=== PATIENT | male | born 1980 | race Caucasian/White ===

== ENCOUNTER 2024-04-01 18:02 | Emergency (ER) | payer BC, SELFPAY ==
[2024-04-01 18:40] VITALS: BP 119/75; PULSE 60; RESP 19; TEMP 36.6; O2SAT 98; BMI 29.0
--- NOTE | 2024-04-01 18:57 | XR_ITS ---
Examination: Fingers, left hand first digit 3 views Technique: AP, oblique, lateral views left hand first digit 3 views. Exam date and time: April 01, 2024 1917 hrs. Indications: Laceration to the first digit today pain Findings: Nondisplaced fracture ungual tuft tip No opaque foreign body No dislocation Impression: Nondisplaced fracture ungual tuft tip distal phalanx first digit
--- NOTE | 2024-04-01 18:57 | PD.EDRME ---
Rapid Medical Screening Exam RME Arrival date/time: 04/01/24 18:02 43-year-old male presents emergency department complaining of pressure injury to left thumb that occurred with heavy table. Chief Complaint: Hand/Wrist Problems Time Seen by Provider: 04/01/24 18:45 Vital signs: Vital Signs Temperature 97.9 F 04/01/24 18:40 Pulse Rate 60 04/01/24 18:40 Respiratory Rate 19 04/01/24 18:40 Blood Pressure 119/75 04/01/24 18:40 Pulse Oximetry (%) 98 04/01/24 18:40 Oxygen Delivery Method Room Air 04/01/24 18:40 Vital signs reviewed by provider: Yes
[2024-04-01] MEDS: HYDROcodone/APAP 5/325 TABLET 1 TAB PO ×2 (19:20→22:42)
[2024-04-01] MEDS: DIPHTH,PERTUSS(ACELL),TET VAC 0.5 ML VIAL IMi (19:20)
[2024-04-01] MEDS: LIDOCAINE HCL 1% 20 ML VIAL INFL (19:21)
--- NOTE | 2024-04-01 22:23 | EDNOTE_ITS ---
<Statement entered by Halina Sanz MD - 04/02/24 19:42> As co-signing physician, I was present and available for consult prn. I concur with the plan and care as documented by the midlevel provider. Upper Extremity Injury RME/HPI General Chief Complaint: Hand/Wrist Problems Stated Complaint: SMASHED LEFT THUMB WITH SEWING MACHINE Time Seen by Provider: 04/01/24 18:45 Source: patient Arrival date/time: 04/01/24 18:02 43-year-old male presents emergency department complaining of crush injury injury to left thumb that occurred with heavy table. Patient is unsure if he is up-to-date with tetanus vaccine. Mode of arrival: ambulatory Limitations: no limitations RME / HPI RME / HPI narrative: 04/01/24 18:02 43-year-old male presents emergency department complaining of pressure injury to left thumb that occurred with heavy table. Related Data Previous Rx's ?Medication ?Instructions ?Recorded azithromycin 250 mg tablet 250 mg PO QDAY #4 tabs 10/20/16 (Zithromax) diphenhydramine HCl 25 mg capsule 50 mg (2 x 25 mg) PO Q4H PRN 08/30/17 (Benadryl) allergic reaction #60 caps epinephrine 0.3 mg/0.3 mL See Rx Instructions .Route 08/30/17 injection, auto-injector (EpiPen .COMPLEX #2 ea 2-Cassius) famotidine 20 mg tablet (Pepcid) 20 mg PO BID #10 tabs 08/30/17 cephalexin 500 mg capsule 500 mg PO BID 7 days #14 caps 04/01/24 hydrocodone 5 mg-acetaminophen 325 1 tab PO BID PRN pain #10 tabs 04/01/24 mg tablet Allergies Allergy/AdvReac Type Severity Reaction Status Date / Time Penicillins Allergy Unknown RASH Verified 04/01/24 18:03 Bee Stings Allergy Unknown ANAPHYLAXIS Uncoded 04/01/24 18:03 Review of Systems Review of Systems Systems Reviewed: All systems reviewed, normal except as documented Constitutional Constitutional: Reports system reviewed and no additional complaints, except as documented, Denies body ache(s), Denies chills and Denies fever(s) Eyes Eyes: Reports system reviewed and no additional complaints, except as documented and Denies change in vision ENT Ears, Nose, Mouth, and Throat: Reports system reviewed and no additional complaints, except as documented, Denies disequilibrium, Denies dizziness, Denies sore throat and Denies vertigo Cardiovascular Cardiovascular: Reports system reviewed and no additional complaints, except as documented, Denies chest pain and Denies dyspnea Respiratory Respiratory: Reports system reviewed and no additional complaints, except as documented, Denies chest congestion, Denies cough and Denies dyspnea Gastrointestinal Gastrointestinal: Reports system reviewed and no additional complaints, except as documented, Denies abdominal pain, Denies nausea and Denies vomiting Musculoskeletal Musculoskeletal: Reports system reviewed and no additional complaints, except as documented, Denies abnormal gait and Denies arthralgias Integumentary/Breasts Skin/Breast: Reports system reviewed and no additional complaints, except as documented, Reports nail changes, Denies erythema, Denies rash, Reports skin swelling and Reports wounds Neurologic Neurologic: Reports system reviewed and no additional complaints, except as documented, Denies abnormal gait, Denies disequilibrium, Denies dizziness and Denies vertigo Past Medical History Past Medical History CARDIAC: Negative Congestive Heart Failure RESPIRATORY: Negative Chronic Obstructive Pulmonary Disease (COPD) GENITOURINARY: Negative Renal Disease ENDOCRINE: Negative Diabetes Mellitus Type 1 or Diabetes Mellitus Type 2 Social History SMOKING STATUS: Never smoker ED Exam General Limitations: Present no limitations General appearance: Present alert and in no apparent distress Head Head exam: Present atraumatic Eye Eye exam: Present normal appearance, PERRL and EOMI ENT ENT exam: Present normal exam, normal oropharynx and mucous membranes moist Neck Neck exam: Present normal inspection, full ROM and trachea midline Chest Chest inspection: Present normal inspection and symmetric chest wall rise Respiratory Respiratory exam: Present normal lung sounds bilaterally Cardiovascular Cardiovascular exam: Present regular rate, normal rhythm and normal heart sounds Abdominal Exam Abdominal exam: Present soft and normal bowel sounds Extremities Exam Extremities exam: Present normal inspection and full ROM Expanded Upper Extremity Exam Hand exam: Present swelling and laceration Hand L/R back image: 2 1. Laceration with bleeding and injury to nail partial avulsion. Vascular exam: Normal capillary refill Back Exam Back exam: Present normal inspection and full ROM Neurological Exam Neurological exam: Present alert, oriented X3 and CN II-XII intact Psychiatric Psychiatric exam: Present normal affect and normal mood Skin Skin exam: Present warm and dry Course Quality Measures none Orders Category Date Time Status Set Up Suture Tray STAT Care 04/01/24 18:58 Completed Splint / Immobilizer STAT Care 04/01/24 22:24 Completed Wound Care [Wound Care] NOW Care 04/01/24 18:58 Completed XR finger LT min 2V Stat Exams 04/01/24 18:57 Completed HYDROcodone*/APAP 5/325 [Imler 5/325] Med 04/01/24 18:57 Discontinued 1 tab PO X1 ONE HYDROcodone*/APAP 5/325 [Imler 5/325] Med 04/01/24 22:28 Discontinued 1 tab PO X1 ONE Lidocaine 1% 20 ml [Xylocaine 1% 20 ML] Med 04/01/24 18:58 Discontinued 20 ml INFL X1 ONE Tet,Diphth,Pertuss(Acell)-Tdap [Boostrix Vacc] Med 04/01/24 18:58 Discontinued 0.5 ml IMI .ONCE ONE Vital Signs Vital signs: Vital Signs Temperature 97.9 F 04/01/24 18:40 Pulse Rate 60 04/01/24 18:40 Respiratory Rate 19 04/01/24 18:40 Blood Pressure 119/75 04/01/24 18:40 Pulse Oximetry (%) 98 04/01/24 18:40 Oxygen Delivery Method Room Air 04/01/24 18:40 98% room air within normal limits Procedures -ED Laceration Laceration 1: Site: hand Side (If applicable): left Size (cm): 1 Description: flap Depth: simple, single layer Local Anesthetic: lidocaine 1% Amount of anesthesia used (mL): 1 Pre-repair: wound explored and irrigated extensively Skin layer closed with: other (Prolene) Size (cm): 4-0 Number of sutures: 4 Technique: simple, interrupted Extremity Injury MDM Narrative MDM Narrative:: 43-year-old male presents emergency department complaining of crush injury injury to left thumb that occurred with heavy table. Patient is unsure if he is up-to-date with tetanus vaccine. X-ray of thumb findings nondisplaced fracture ungual tuft tip distal phalanx first digit. Left thumb irrigated with copious amounts of normal saline. 1 mL of 1% lidocaine was used as local anesthetic for digital block. Using 4-0 Prolene 4 simple interrupted sutures into the nailbed was used to stabilize nail. Patient tolerated well. No tendon involvement. Dressing was applied and prefabricated finger splint was applied as well. Patient instructed to have sutures removed in 7 to 10 days and have primary care provider send referral to director of orthopedics for finger fracture. Patient discharged on prophylactic antibiotics and instructed to return to emergency department for any signs of infection or worsening symptoms. Patient data External records reviewed:: [facility] previous records Clinical information provided by:: patient Social determinants that could affect healthcare access:: none Patient has the following chronic illnesses:: None How is presenting disease/condition affected by chronic disease/condition?: no chronic disease Evaluation data The following diagnostics were reviewed and interpreted by me:: radiology exam(s) Lab and/or radiology exams considered but not ordered:: Ordered Interpretation Summary: Interpreted by me Medications / Prescriptions Medications or Prescriptions considered but not ordered:: Ordered Medication administrations:: Medication Administration History Discontinued Medications Hydrocodone Bitart/Acetaminophen (Hydrocodone/Apap 5/325 Tablet) 1 tab PO X1 ONE Stop: 04/01/24 18:58 Last Admin: 04/01/24 19:20 Dose: 1 tab Documented By: OA Hydrocodone Bitart/Acetaminophen (Hydrocodone/Apap 5/325 Tablet) 1 tab PO X1 ONE Stop: 04/01/24 22:29 Last Admin: 04/01/24 22:42 Dose: 1 tab Documented By: Diphtheria/Tetanus/Acell Pertussis (Diphth,Pertuss(Acell),Tet Vac 0.5 Ml Vial) 0.5 ml IMi .ONCE ONE Stop: 04/01/24 18:59 Last Admin: 04/01/24 19:20 Dose: 0.5 ml Documented By: DENISSE Lidocaine HCl (Lidocaine Hcl 1% 20 Ml Vial) 20 ml INFL X1 ONE Stop: 04/01/24 18:59 Last Admin: 04/01/24 19:21 Dose: 20 ml Documented By: OA Given Consultations Consultation(s) initiated? (list below): No Diagnosis Upper Extremity Injury Differential Diagnosis: finger sprain, dislocation of finger and fracture of hand Most likely diagnosis given after review of the tests above:: Laceration of left thumb with damage to nail Left thumb fracture Admission Indicated Admission indicated?: not indicated Admission Request Was there a request for admission?: No Disposition Plan Disposition Plan: Discharge Discharge Attestation Discharge Attestation: The patient and all family members were given an opportunity to ask questions and understood the discharge instructions. Discharge instructions specifically effects, indications for sooner follow up or return to the emergency department, and the expected course of current diagnosis. Patient condition: Stable Discharge Plan Plan Patient Disposition: HOME (Self Care) Disposition Comment: Stable Prescriptions/Referrals Prescriptions/Med Rec: New hydrocodone-acetaminophen 5-325 mg tablet 1 tab PO BID MDD 2 tabs PRN (Reason: pain) Qty: 10 0RF cephalexin 500 mg capsule 500 mg PO BID 7 Days Qty: 14 0RF No Action azithromycin [Zithromax] 250 MG tablet 250 mg PO QDAY Qty: 4 0RF diphenhydramine HCl [Benadryl] 25 mg capsule 50 mg PO Q4H PRN (Reason: allergic reaction) Qty: 60 0RF famotidine [Pepcid] 20 mg tablet 20 mg PO BID Qty: 10 0RF epinephrine [EpiPen 2-Cassius] 0.3 mg/0.3 mL auto-injector See Rx Instructions .ROUTE .COMPLEX Qty: 2 0RF Rx Instructions: Use as directed Referrals: Benjamin Green MD [Primary Care Provider] - In 1 week Problem List Clinical Impression: Fracture of thumb, Laceration of left thumb with damage to nail Patient/Caregiver Discharge Instructions Discharge Activity: activity as tolerated Education Materials: ED Fracture, Finger, Closed, ED Laceration: All Closures Additional Instructions: Take medication for pain as prescribed. Follow-up with primary care provider and request referral to director of orthopedics for fracture of thumb and have sutures removed in 7 or 10 days. Take antibiotics as prescribed. Return to the emergency department for any worsening symptoms or as needed. Print Language: Kazakh Stand Alone Forms: [place] Award Info., Patient Portal Info Letter LEANNA/NICOLE Supervising Physician LEANNA/NICOLE Supervising Physician: Dr. Sanz
== END 2024-04-01 23:01 | disposition home or self-care (01) ==
PROVIDERS: Emergency Provider Emergency Medicine; PCP Family Medicine
DX: S62.525B Nondisplaced fracture of distal phalanx of left thumb, initial encounter for open fracture (principal); Z23 Encounter for immunization
CPT/HCPCS: 12001; 73140; 90471; 90715; 99283; J3490; A9270